=== PATIENT | male | born 1970 | race Caucasian/White ===

== ENCOUNTER 2016-11-15 22:07 | Emergency (ER) | payer SELFPAY ==
[2016-11-15 22:13] VITALS: BP 169/90; PULSE 91; RESP 18; TEMP 98; O2SAT 99
--- NOTE | 2016-11-15 23:10 | ED PDOC ---
Lower Extremity Pain/Injury Time Seen by Provider: 11/15/16 22:39 Chief Complaint (Nursing): Lower Extremity Problem/Injury History Per: Patient Additional Complaint(s): Pt. states since Thursday he's had atraumatic R great toe pain. Pt. reports a hx of gout. He has been taking Advil without relief. Reports he also gets symptoms on the other foot intermittently but now pain is localized to the R great toe. Denies fever, trauma, numbness, tingling. Past Medical History Reviewed: Historical Data, Nursing Documentation, Vital Signs Vital Signs: Last Vital Signs Temp 98 F 11/15/16 22:11 Pulse 91 H 11/15/16 22:11 Resp 18 11/15/16 22:11 BP 169/90 H 11/15/16 22:11 Pulse Ox 99 11/15/16 22:11 - Medical History Other PMH: Gout - Family History Family History: States: Unknown Family Hx - Home Medications Home Medications: Ambulatory Orders Medication Instructions Recorded Colchicine 0.6 mg PO DAILY #0 tab 05/03/15 Indomethacin 50 mg PO Q8 #30 cap 05/03/15 Indomethacin 50 mg PO Q8 PRN #21 cap 07/13/15 oxyCODONE/Acetaminophen [Percocet 1 ea PO Q6 PRN #10 tab 07/13/15 5/325 mg Tab] Methylprednisolone [Medrol Dose 4 mg PO DAILY #21 mg 08/19/15 Pack (21 tabs)] Indomethacin [Indocin] 50 mg PO BID PRN #15 cap 11/15/16 - Allergies Allergies/Adverse Reactions: Allergies Allergy/AdvReac Type Severity Reaction Status Date / Time No Known Allergies Allergy Verified 08/19/15 22:47 Physical Exam - Physical Exam Appears: Positive for: Well, Non-toxic, No Acute Distress Skin: Positive for: Normal Color, Warm. Negative for: Rash Pulses-Dorsalis Pedis (L): 2+ Pulses-Dorsalis Pedis (R): 2+ Extremity: Positive for: Capillary Refill (< 2 seconds of RLE), Other (R 1st MTP with moderate swelling, warmth, erythema without break in skin integrity). Negative for: Pedal Edema, Calf Tenderness - ECG O2 Sat by Pulse Oximetry: 99 Disposition - Clinical Impression Clinical Impression: Gout - Patient ED Disposition Is Patient to be Admitted: No - Disposition Disposition: Routine/Home Disposition Time: :13 Condition: STABLE Prescriptions: Indomethacin [Indocin] 50 mg PO BID PRN #15 cap PRN Reason: pain Instructions: Gout (ED) Print Language: [id number]
== END 2016-11-15 23:28 | disposition home or self-care (01) ==
LOC: H.ER 22:07
DX: M10.9 Gout, unspecified (principal)
CPT/HCPCS: 96372; 99283; J1885